=== PATIENT | female | born 2000 | race American Indian/Alaskan Native ===

== ENCOUNTER 2021-11-11 23:18 | Emergency (ER) | payer SELFPAY ==
[2021-11-11 23:58] VITALS: BP 115/76
[2021-11-12] MEDS ORDERED: ACETAMINOPHEN 500 MG TAB PO ONE (01:20)
[2021-11-12] MEDS ORDERED: IBUPROFEN 600 MG TAB PO ONE (01:20)
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
== END 2021-11-12 01:30 | disposition left against medical advice (07) ==
LOC: ED 23:18
DX: M62.838 Other muscle spasm (principal); V89.2XXA Person injured in unspecified motor-vehicle accident, traffic, initial encounter; Y93.89 Activity, other specified; Y92.89 Other specified places as the place of occurrence of the external cause; Y99.8 Other external cause status
CPT/HCPCS: 99282